=== PATIENT | female | born 1980 | race Caucasian/White ===

== ENCOUNTER → 2018-07-21 | Outpatient (CLI) | payer OTHER ==
[2018-07-21 09:48] LABS: ESTRADIOL 173.9 PG/ML
[2018-07-21 10:24] LABS: PROGESTERONE 117.2 NG/ML
== END ==
LOC: M LAB 06:28
DX: E28.9 Ovarian dysfunction, unspecified (principal)
CPT/HCPCS: 84443

== ENCOUNTER → 2018-07-25 | Outpatient (CLI) | payer OTHER ==
[2018-07-25 09:17] LABS: HCG, SERUM QUANTITATIVE 435 MIU/ML
[2018-07-25 14:49] LABS: PROGESTERONE 89.7 NG/ML
== END ==
LOC: M LAB 06:09
DX: E28.9 Ovarian dysfunction, unspecified (principal)
CPT/HCPCS: 84702

== ENCOUNTER → 2018-07-29 | Outpatient (CLI) | payer OTHER ==
[2018-07-29 11:22] LABS: PROGESTERONE 69.8 NG/ML
[2018-07-29 11:22] LABS: ESTRADIOL 241.6 PG/ML; HCG, SERUM QUANTITATIVE 2542 MIU/ML; THYROID STIMULATING HORMONE 0.855 uIU/ML (0.358-3.740)
== END ==
LOC: M LAB 06:27
DX: O09.00 Supervision of pregnancy with history of infertility, unspecified trimester (principal)
CPT/HCPCS: 84443

== ENCOUNTER → 2018-10-06 | Outpatient (CLI) | payer OTHER ==
[~2018-10-06] MED LIST: MOTR200T44 PO; PSEU30TA21 PO; TYLE325T5 PO
[2018-10-06 18:35] LABS: BASO % 0.1 % (0.0-1.0); EOS # 0.1 10^3/uL (0.0-0.50); EOS % 1.2 % (0.0-3.0); HEMOGLOBIN 11.9 g/dl (12.0-15.5); LYMPH # 1.7 10^3/uL (1.5-4.5); LYMPH % 18.9 % (24.0-44.0); MEAN CORPUSCULAR HEMOGLOBIN 29.6 pg (27.0-33.0); MEAN CORPUSCULAR HGB CONC 33.1 g/dl (32.0-36.5); MEAN CORPUSCULAR VOLUME 89.6 fl (80.0-96.0); MONO # 0.6 10^3/uL (0.0-0.8); NEUTROPHILS # 6.7 10^3/uL (1.8-7.7); NEUTROPHILS % 73.5 % (36.0-66.0); PLATELET COUNT, AUTOMATED 178 10^3/uL (150-450); RED BLOOD COUNT 4.02 10^6/uL (4.00-5.40); WHITE BLOOD COUNT 9.1 10^3/uL (4.0-10.0)
[2018-10-06 21:33] LABS: CHLAMYDIA DNA AMPLIFICATION NEGATIVE (NEGATIVE); GC DNA AMPLIFICATION NEGATIVE (NEGATIVE)
[2018-10-08 11:47] LABS: HEPATITIS C VIRUS ABY INDEX 0.1 INDEX (<0.8); HIV 1&2 SCREEN CENTAUR NEGATIVE (NEGATIVE); RUBELLA IgG QUALITATIVE EQUIVOCAL (IMMUNE)
== END ==
LOC: M SMT 15:41
PROVIDERS: ATTEND Advanced Practice Midwife
DX: Z36.89 Encounter for other specified antenatal screening (principal)

== ENCOUNTER → 2018-11-03 | Outpatient (CLI) | payer OTHER ==
--- NOTE | 2018-11-04 05:10 | REP ---
Clinical: Twin gestation. Anatomical assessment Comparison: None . Findings: Examination demonstrates diamniotic dichorionic twin gestation. Cervix measures 3.3 cm cm in length and appears closed. Complete placenta previa noted. Gestational age by LMP at 18 weeks 3 days with estimated date of delivery 04/03/2019 . TWIN A: Twin A identified in transverse (head to maternal right) presentation along the maternal lower left side. Placenta is noted posterior and grade grade 1 with evidence for complete placenta previa. motion is appreciated. Amniotic fluid volume is subjectively normal. FHR equals 144 beats per minute. BPD 4.1 cm 18 weeks 2 days HC 15.0 cm 18 weeks 1 day AC 13.9 cm 19 weeks 2 days FL 2.9 cm 18 weeks 6 days HL 2.8 cm 19 weeks 1 day HC/AC ratio 1.08 Gestational age by current measurements: 18 weeks 4 days . Estimated weight 260 grams ( 68th percentile). Anatomical assessment is complete. Normal visualized structures including cranium, cavum, cerebellum/posterior fossa, facial features, lungs, four-chamber heart/ventricular outflow tracts, diaphragm, stomach, cord insertion/three-vessel cord, kidneys/bladder, spine and extremities. Small left choroid plexus cyst noted. ------- TWIN B: Twin B identified in transverse (head to maternal left) presentation along the maternal right fundal side. Placenta is noted posterior and grade grade 1 evidence for complete previa. motion is appreciated. Amniotic fluid volume is subjectively normal. FHR equals 152 beats per minute. BPD 4.4 cm 19 weeks 1 day HC 16.1 cm 18 weeks 6-day AC 13.0 cm 18 weeks 4 days FL 3.0 cm 90 weeks 2 days HL 2.8 cm 19 weeks 1 day HC/AC ratio 1.24 Gestational age by current measurements: 18 weeks 6 days . Estimated weight 263 grams ( 64th percentile). Anatomical assessment is complete. Normal visualized structures including cranium, cord plexus, cavum, cerebellum/posterior fossa, facial features, lungs, four-chamber heart/ventricular outflow tracts, diaphragm, stomach, cord insertion/three-vessel cord, kidneys/bladder, spine and extremities. Impression: 1. Diamniotic dichorionic twin gestation demonstrating appropriate concordant growth. 2. Complete placenta previa noted. 3. Twin A includes small choroid plexus cyst. Anatomical assessment for both fetuses otherwise normal and complete. Electronically Signed by Julius Granda MD 11/04/2018 05:02 A
== END ==
LOC: M RAD 16:03
PROVIDERS: ATTEND Advanced Practice Midwife
DX: O30.042 Twin pregnancy, dichorionic/diamniotic, second trimester (principal); O32.2XX1 Maternal care for transverse and oblique lie, fetus 1; O32.2XX2 Maternal care for transverse and oblique lie, fetus 2; Z3A.18 18 weeks gestation of pregnancy; O44.02 Complete placenta previa NOS or without hemorrhage, second trimester

== ENCOUNTER → 2018-12-18 | Outpatient (CLI) | payer OTHER ==
--- NOTE | 2018-12-18 17:25 | REP ---
Clinical: Placenta previa. Twin gestation. Comparison: 11/03/2018. Findings: Examination demonstrates diamniotic dichorionic twin gestation. Cervix measures 3.9 cm cm in length and appears closed. Concordant growth is noted. Placenta identified posteriorly, grade 1 and with complete placenta previa noted. Gestational age by first ultrasound at 25 weeks 0 days with estimated date of delivery 03/31/2019 . TWIN A: Twin A identified in transverse (head to maternal right) presentation along the maternal right side. motion is appreciated. Amniotic fluid volume is normal and the deepest pocket measures 5.9 cm. FHR equals 147 beats per minute. BPD 6.2 cm 25 weeks 1 day HC 22.7 cm 24 weeks 5 days AC 20.0 cm 24 weeks 5 days FL 4.6 cm 25 weeks 2 days HL 4.1 cm 24 weeks 5 days HC/AC ratio 1.14 Estimated weight 748 grams ( 33rd percentile). Limited anatomical assessment without obvious abnormality. ------- TWIN B: Twin B identified in transverse (head to maternal left) presentation along the maternal fundal side. motion is appreciated. Amniotic fluid volume is normal and the deepest pocket measures 5.7 cm. FHR equals 150 beats per minute. BPD 6.6 cm 26 weeks 4 days HC 23.6 cm 25 weeks 5 days AC 20.8 cm 25 weeks 3 days FL 4.7 cm 25 weeks 5 days HL 4.2 cm 25 weeks 2 days HC/AC ratio 1.13 Estimated weight 826 grams ( 51st percentile). Limited anatomical assessment without obvious abnormality. Impression: 1. Diamniotic dichorionic twin gestation demonstrating appropriate concordant growth. 2. Complete placenta previa. Electronically Signed by Julius Granda MD 12/18/2018 05:17 P
== END ==
LOC: M RAD 15:45
PROVIDERS: ATTEND Advanced Practice Midwife
DX: O30.042 Twin pregnancy, dichorionic/diamniotic, second trimester (principal); O44.00 Complete placenta previa NOS or without hemorrhage, unspecified trimester; Z3A.25 25 weeks gestation of pregnancy

== ENCOUNTER → 2018-12-29 | Outpatient (CLI) | payer OTHER ==
[~2018-12-29] MED LIST changes: +DICL10TA PO; +FOLI800C PO; +ZOFR4TAB16 PO
[2018-12-29 19:30] LABS: HEMATOCRIT 33.4 % (36.0-47.0); HEMOGLOBIN 10.9 g/dl (12.0-15.5); MEAN CORPUSCULAR HEMOGLOBIN 29.6 pg (27.0-33.0); MEAN CORPUSCULAR HGB CONC 32.6 g/dl (32.0-36.5); MEAN CORPUSCULAR VOLUME 90.8 fl (80.0-96.0); PLATELET COUNT, AUTOMATED 212 10^3/uL (150-450); RED BLOOD COUNT 3.68 10^6/uL (4.00-5.40); WHITE BLOOD COUNT 8.8 10^3/uL (4.0-10.0)
== END ==
LOC: M WUC 15:26
PROVIDERS: ATTEND Advanced Practice Midwife
DX: O30.042 Twin pregnancy, dichorionic/diamniotic, second trimester (principal)

== ENCOUNTER 2018-12-31 07:37 | Outpatient (CLI) | payer OTHER ==
[~2018-12-31] VITALS: Ht 162.6 cm; Wt 72.4 kg
[~2018-12-31 07:37] MED LIST changes: -DICL10TA PO; -FOLI800C PO; -ZOFR4TAB16 PO
[2018-12-31] MEDS ORDERED: DICL10TA PO (07:54)
[2018-12-31] MEDS ORDERED: FOLI800C PO (07:54)
[2018-12-31] MEDS ORDERED: ZOFR4TAB16 PO (07:54)
[2018-12-31 08:12] VITALS: BP 112/58
--- NOTE | 2018-12-31 09:42 | IPN ---
DATE: 12/31/2018 Mariam is a 38-year-old 5, para 3-0-1-3 at 26-6/7 weeks gestation with an estimated date of confinement of 04/03/2019 based on in vitro fertilization (IVF) transfer. She presents to labor and delivery today with report of episode of bleeding at approximately 0600, moderate amount of bright red bleeding, known placenta previa, dichorionic/diamniotic (di/di) twin gestation. She denies any regular contractions and leakage of fluid. Both fetus has been active. She denies painful contractions. care was initiated at [facility] in the first trimester. course complicated by advanced maternal age. Declined Panorama testing. History of shoulder dystocia. History of hemorrhage, current(di/di) twin gestation with a complete previa, rubella equivocal with planned section. OBSTETRICAL HISTORY: June 2011: 38 weeks gestation, 7 pounds 12 ounces female vaginal delivery complicated by a hemorrhage. April 2014: 41-3/7 weeks, 8 pounds 14 ounces female, shoulder dystocia vaginal delivery. August 2016: 39 weeks gestation, 7 pounds 15 ounces male, vaginal delivery, no complications, induction of labor. March 2012: Spontaneous miscarriage. OBSTETRIC LABS: A+, antibody screen negative. Rubella equivocal, VDRL nonreactive. Urine culture no growth. Hep B surface antigen negative, HIV negative. Hep C antibody nonreactive. Gonorrhea, chlamydia negative. She declined genetic serum screening labs. Gestational diabetic screening abnormal at 186. Her 3-hour glucose tolerance test has not been scheduled yet. PAST MEDICAL HISTORY: Male factor infertility. Childhood varicella. SURGERIES: None. FAMILY HISTORY: Noncontributory. SOCIAL HISTORY: The patient is with her is at bedside. She is a nonsmoker. Denies alcohol and drug use. No history of any sexually transmitted infections and denies history of abuse, physical, sexual and emotional. ALLERGIES: No known drug allergies. CURRENT MEDICATIONS: Include -Zofran 4 mg ODT p.r.n. - Folic acid. - vitamins. OBJECTIVE: Temperature 98.2, pulse 103, blood pressure 112/58. She is alert and oriented times three. She is in no apparent distress, smiling and talkative. heart rate twin A 150 with moderate variability, appropriate for gestational age. heart rate twin B 155, moderate variability, appropriate for gestational age. There seems to be a pattern of uterine irritability and occasional contraction. Sterile speculum exam: Deepstep bleeding noted in vaginal vault. No active bleeding from cervical os. Sterile vaginal exam deferred. ASSESSMENT: Intrauterine . (di/di) twin gestation 26-6/7 weeks. heart rate is appropriate for gestational age both twins. Complete placenta previa complicated by vaginal bleeding. PLAN: Bedrest with bathroom privileges. Regular diet. Continuous monitoring at this time. Likely will observe overnight. Plan made in consultation with Dr. Cordova.
[2018-12-31 10:46] VITALS: BP 116/57
[2018-12-31 14:00] VITALS: BP 103/54
[2018-12-31 18:48] VITALS: BP 123/56
[2018-12-31 20:00] VITALS: BP 130/60
[2019-01-01 00:56] VITALS: BP 108/55
[2019-01-01 06:12] VITALS: BP 106/57
== END 2019-01-01 09:05 | disposition home or self-care (01) ==
LOC: M LDO 07:37
PROVIDERS: ATTEND Advanced Practice Midwife
DX: O26.852 Spotting complicating pregnancy, second trimester (principal); O30.042 Twin pregnancy, dichorionic/diamniotic, second trimester; O44.10 Complete placenta previa with hemorrhage, unspecified trimester; O09.522 Supervision of elderly multigravida, second trimester; Z3A.26 26 weeks gestation of pregnancy
CPT/HCPCS: G0378; G0463

== ENCOUNTER → 2019-01-02 | Outpatient (CLI) | payer OTHER ==
[~2019-01-02] MED LIST changes: +DICL10TA PO; +FOLI800C PO; +ZOFR4TAB16 PO
== END ==
LOC: M LAB 08:00
PROVIDERS: ATTEND Advanced Practice Midwife
DX: R73.02 Impaired glucose tolerance (oral) (principal)

== ENCOUNTER 2019-01-17 21:31 | Inpatient (IN) | payer OTHER ==
[~2019-01-17] VITALS: Ht 162.6 cm; Wt 73.0 kg
[2019-01-17] VITALS (14 sets, daily range): BP systolic 63–121; BP diastolic 34–65
[2019-01-17] MEDS ORDERED: MAGNESIUM *L&D* 4 GM/100 ML BAG (40MG/ML) (J3475) As Ordered ONE (21:49)
[2019-01-17] MEDS ORDERED: MAGNESIUM SULFATE 4% INJ 20GM/500ML (40MG/ML) (J3475) As Ordered ONE (21:49)
[2019-01-17 21:52] LABS: HEMATOCRIT 32.5 % (36.0-47.0); HEMOGLOBIN 10.7 g/dl (12.0-15.5); MEAN CORPUSCULAR HEMOGLOBIN 29.1 pg (27.0-33.0); MEAN CORPUSCULAR HGB CONC 32.9 g/dl (32.0-36.5); MEAN CORPUSCULAR VOLUME 88.3 fl (80.0-96.0); PLATELET COUNT, AUTOMATED 213 10^3/uL (150-450); RED BLOOD COUNT 3.68 10^6/uL (4.00-5.40); WHITE BLOOD COUNT 9.5 10^3/uL (4.0-10.0)
[2019-01-17] MEDS: MAG Sulf (OBGYN) 20GM/500ML 20,000 MG in APPROPRIATE DILUENT 1 EA IV SCH (22:08)
[2019-01-17] MEDS ORDERED: BETAMETHASONE SOLUSPAN 6MG/ML INJ 5ML (J0702) IM SCH (22:15)
[2019-01-17] MEDS ORDERED: MAG Sulf (L&D) 4 GM/100 ML 4 GM in APPROPRIATE DILUENT 1 EA IV ONE (22:15)
[2019-01-17] MEDS ORDERED: CALCIUM GLUCONATE 1,000 MG in D5W MINI-BAG PLUS 100 ML IV PRN (22:15)
[2019-01-17] MEDS: LR 1,000 ML IV SCH (22:20)
[2019-01-17] MEDS: ONDANSETRON 4MG/2ML VIAL (J2405) IV PRN (22:22)
[2019-01-18] VITALS (17 sets, daily range): BP systolic 89–126; BP diastolic 46–59
--- NOTE | 2019-01-18 00:39 | REPVR ---
EXAM: US After First Trimester, Transabdominal. Additional Gestation EXAM DATE/TIME: 01/17/2019 11:19 PM CLINICAL HISTORY: 38 years old, female; Signs and symptoms; Lmp or gestational age (in weeks): 29w 1d; Other: Vaginal bleeding, twin gestation; ; Patient HX: Placenta previa, twin gestation; Additional info: Growth TECHNIQUE: Imaging protocol: Real-time transabdominal obstetrical ultrasound of the maternal pelvis and a second or third trimester with image documentation. Additional Gestation was evaluated. COMPARISON: US OBS FOLL UP OR REPEAT EACH GES 12/18/2018 3:57 PM FINDINGS: Last menstrual period: 06/27/2018 Gestation: There is a diamniotic, dichorionic twin intrauterine gestation. Placenta: The placenta is anterior and grade 1. There is complete placenta previa. There is no evidence for placental abruption. Cervix: The cervix is closed and measures 4.2 cm. Maternal uterus: Unremarkable. Maternal adnexa: The ovaries were not identified. TWIN A: Heart rate: 155 beats per minute Presentation: The fetus is in transverse lie with the head to the maternal right. Amniotic fluid: Within normal limits. The deepest pocket of amniotic fluid measures 4.6 cm the Gender: Female BPD: 7.26 cm, which corresponds with gestational age of 29 weeks 1 day (27% for GA) HC: 25.82 cm, which corresponds to a gestational age of 28 weeks 0 days (3% for GA) AC: 24.32 cm, which corresponds to a gestational age of 28 weeks 4 days (27% for GA) FL: 5.45 cm, which corresponds to a gestational age of 28 weeks 6 days (25% for GA) HL: 4.95 cm, which corresponds to a gestational age of 29 weeks 0 days (42% for GA) CI: 84.6 (74 - 83) HC/AC: 1.06 (0.99 - 1.21) FL/BPD: 75.1 (70.8 - 86.8) FL/HC: 21.1 (18.4 - 22) FL/AC: 22.4 (20 - 24) EFW: 1260 g +/- 186 g (2 lb 12 oz +/- 7 oz) (21% for GA) Clinical age: 29 weeks 1 day Ultrasound age: 28 weeks 5 days Estimated due date based on LMP: 04/03/2019 Estimated due date based on ultrasound: 04/06/2019 Biophysical profile: 05/28 Breathin Movement: 2 Tone: 2 Amniotic fluid volume: 2 Doppler: Umbilical - Insertion: S/D: 2.63 RI: 0.62 The nuchal cord was not identified. Scan quality was limited due to crowding and the advanced gestational age. TWIN B: Heart rate: 158 beats per minute Presentation: Fetus B is in transverse lie with the head to the maternal right positioned superior to fetus A at the fundus. Amniotic fluid: Within normal limits. The deepest pocket of the amniotic fluid measures 3.3 cm. Gender: Female BPD: 7.65 cm, which corresponds with gestational age of 30 weeks 5 days (84% for GA) HC: 27.95 cm, which corresponds to a gestational age of 30 weeks 4 days (61% for GA) AC: 26.30 cm, which corresponds to a gestational age of 30 weeks 3 days (81% for GA) FL: 5.89 cm, which corresponds to a gestational age of 30 weeks 5 days (79% for GA) HL: 5.08 cm, which corresponds to a gestational age of 29 weeks 5 days (56% for GA) CI: 82.4 (74 - 83) HC/AC: 1.06 (0.99 - 1.21) FL/BPD: 77 (70.8 - 86.8) FL/HC: 21.1 (18.4 - 22) FL/AC: 22.4 (20 - 24) EFW: 1597 g +/- 236 g (3 lb 8 oz +/- 8 oz) (86% for GA) Clinical age: 29 weeks 1 day Ultrasound age: 30 weeks 3 days Estimated due date based on LMP: 04/03/2019 Estimated due date based on ultrasound: 03/25/2019 Biophysical profile: 05/28 Breathin Movement: 2 Tone: 2 Amniotic fluid volume: 2 Doppler: Umbilical - Insertion: S/D: 3.97 RI: 0.75 The nuchal cord was not identified. Scan quality was limited due to crowding and the advanced gestational age. IMPRESSION: 1. Diamniotic, dichorionic gestation demonstrating appropriate concordant growth. 2. Complete placenta previa. Electronically signed by: Brendan Mccoy On 01/18/2019 00:38:17 AM
[2019-01-18] MEDS: LR 1,000 ML IV SCH (03:17)
[2019-01-18 06:02] LABS: HEMATOCRIT 29.2 % (36.0-47.0); HEMOGLOBIN 9.5 g/dl (12.0-15.5); MEAN CORPUSCULAR HEMOGLOBIN 28.5 pg (27.0-33.0); MEAN CORPUSCULAR HGB CONC 32.5 g/dl (32.0-36.5); MEAN CORPUSCULAR VOLUME 87.7 fl (80.0-96.0); PLATELET COUNT, AUTOMATED 186 10^3/uL (150-450); RED BLOOD COUNT 3.33 10^6/uL (4.00-5.40); WHITE BLOOD COUNT 11.4 10^3/uL (4.0-10.0)
[2019-01-18] MEDS: ONDANSETRON 4MG/2ML VIAL (J2405) IV PRN ×2 (07:15→10:33)
[2019-01-18] MEDS: MAG Sulf (OBGYN) 20GM/500ML 20,000 MG in APPROPRIATE DILUENT 1 EA IV SCH (07:51)
--- NOTE | 2019-01-18 11:32 | DSES ---
DATE OF ADMISSION: 01/17/2019 DATE OF TRANSFER: 01/18/2019 TRANSFER LOCATION: [facility]. HISTORY AND HOSPITAL COURSE: Mrs. Menendez is a 38-year-old 5, para 3 who presented at 29 weeks 1 day estimated gestational age, this was by in vitro fertilization (IVF) transfer with a known dichorionic/diamniotic (Ezio) twin gestation, complete placenta previa with acute vaginal bleeding. She was admitted for observation after having significant active bleeding. She was started on magnesium sulfate for tocolysis secondary to contractions. Her contractions spaced out on magnesium sulfate. She received one dose of steroids for lung maturity and she had no further vaginal bleeding since arrival to the hospital. She currently and has had a category 2 rate tracing for both twins. PHYSICAL EXAMINATION: Her vital signs are stable. She is afebrile. GENERAL APPEARANCE: Well appearing, no acute distress. She has a category 2 heart rate tracing for both twins with occasional contractions on tocometer. LABS: Upon admission, her hemoglobin and hematocrit 10.7 and 32.5, platelets were 213. This morning, her hemoglobin and hematocrit is 9.5 and 29.2, and her platelets are 186. RADIOLOGY: She has had bedside ultrasound demonstrating Ezio twin gestation, complete placenta previa. She had a biophysical profile the 05/28 for both twins. Estimated weight for twin B is 1597 grams, for twin A 1260 grams. TRANSFER CONDITION: Stable. ACCEPTING PHYSICIAN: Dr. Chun LOCATION: [facility]. MEDICATIONS ON TRANSFER: - magnesium sulfate 2 grams an hour. She will be accompanied by an RN and will have continuous monitoring.
--- NOTE | 2019-01-18 14:46 | HPE ---
DATE OF ADMISSION: 01/17/2019 REASON FOR ADMISSION: Vaginal bleeding. HISTORY OF PRESENT ILLNESS: Mrs. Menendez is a 38-year-old 5, para 3 who presents at 29 weeks 1 day estimated gestational age by in vitro fertilization (IVF) transfer with known diamniotic-dichorionic (DI-DI) twin gestation with complete placenta previa, who presents with vaginal bleeding. She reports overnight having an episode of brisk vaginal bleeding requiring three patchings just within an hour. She reports active movement, denies any significant contractions. Her course is remarkable for: 1. Diamniotic-dichorionic twin gestation. 2. Placenta previa. 3. Advanced maternal age. PAST MEDICAL HISTORY: None. PAST SURGICAL HISTORY: None. PAST OBSTETRICAL HISTORY: She is 3, she is para 3. She has had three vaginal deliveries. Her second was complicated by shoulder dystocia. She is proven to 8 pounds 14 ounces. MEDICATIONS: Include vitamins. She has a sensitivity to codeine. SOCIAL HISTORY: She denies any alcohol, tobacco, or drug use during her . PHYSICAL EXAM: Her vital signs are stable. She is afebrile. She has category 2 rate tracing times two. General appearance: Well appearing, no acute distress. Her lungs are clear to auscultation bilaterally. Cardiovascular: Heart regular rate and rhythm. Her abdomen is gravid, nontender. Pelvic exam was deferred. The perineum was inspected with large amount of clots, which was cleaned up no active bleeding currently. LABS: her blood type is A positive. Antibody screen is negative. Rubella was equivocal. Hepatitis surface antigen is negative. RPR is nonreactive. HIV is negative. Hepatitis C is nonreactive. Chlamydia and gonorrhea screens negative. She had an elevated 1-hour Glucola, normal 3-hour glucose tolerance test. Her current CBC, her hematocrit is 32.5, hemoglobin 10.7, platelets 213. ASSESSMENT: 1. Mrs. Menendez is a 38-year-old 5, para 3, at 29 weeks 1 day estimated gestational age with known diamniotic-dichorionic twin gestation and complete placenta previa with acute vaginal bleeding, currently stable. 2. Reassure status times two. PLAN: 1. Admit to labor and delivery CBC, type and cross. 2. Biophysical profile (BPP) and growth ultrasound. 3. Steroids to lung maturity. 4. Magnesium sulfate tocolysis secondary to contractions on tocometer. 5. Everything has been discussed with the couple. Discussed plan of care. Goal was to monitor. If remains stable, consider transfer to [place]. Have also discussed potential need for emergency surgery, blood products, anesthesia. She has been verbally consented and agrees with plan.
== END 2019-01-18 10:40 | disposition other institution (70) | DRG 833 ==
LOC: M LDO 21:31 → M LDI 22:00 → UNDODISIN 01-18 10:40
PROVIDERS: ADMIT Obstetrics & Gynecology; ATTEND Obstetrics & Gynecology
DX: O44.13 Complete placenta previa with hemorrhage, third trimester (principal); Z3A.29 29 weeks gestation of pregnancy; O09.523 Supervision of elderly multigravida, third trimester; O30.043 Twin pregnancy, dichorionic/diamniotic, third trimester

== ENCOUNTER 2019-02-06 22:27 | Inpatient (IN) | payer OTHER ==
[~2019-02-06] VITALS: Ht 162.6 cm; Wt 75.5 kg
--- NOTE | 2019-02-06 22:54 | IPNPDOC ---
Text Note Date of Service The patient was seen on 02/06/19. NOTE Outpatient 38yo JOSE G 04/03/19. Di/di twin gestation presents @ 32 wks with abrupt onset heavy bleeding. Known placenta previa. Denies contractions or LOF. Fetus active x 2 NAD, appears concerned VSS Cat I tracing x 2 No UC on monitor Spec exam, large amount bright red bleeding with clots, unable to clear vault sufficiently to visualize cervix Dr Howard notified to attend. Maggie Hadley CNM Feb 06, 2019 22:54
[2019-02-06] MEDS: LR 1,000 ML IV SCH (23:00)
[2019-02-06] MEDS ORDERED: LACTATED RINGER'S 1000 ML IV ONE (23:00)
[2019-02-06] MEDS ORDERED: BICITRA 30ML SOLN UDC As Ordered ONE (23:08)
[2019-02-06 23:11] LABS: HEMOGLOBIN 9.3 g/dl (12.0-15.5); MEAN CORPUSCULAR HEMOGLOBIN 28.4 pg (27.0-33.0); MEAN CORPUSCULAR HGB CONC 32.1 g/dl (32.0-36.5); MEAN CORPUSCULAR VOLUME 88.4 fl (80.0-96.0); PLATELET COUNT, AUTOMATED 175 10^3/uL (150-450); RED BLOOD COUNT 3.28 10^6/uL (4.00-5.40); WHITE BLOOD COUNT 9.9 10^3/uL (4.0-10.0)
[2019-02-06] MEDS ORDERED: BICITRA 30ML SOLN UDC PO ONE (23:15)
[2019-02-06] MEDS: BETAMETHASONE SOLUSPAN 6MG/ML INJ 5ML (J0702) IM SCH (23:21)
[2019-02-06 23:31] LABS: PROTHROMBIN TIME 13.3 SECONDS (12.1-14.4)
[2019-02-06 23:32] LABS: PARTIAL THROMBOPLASTIN TIME 24.9 SECONDS (25.4-37.6)
[2019-02-07] VITALS (12 sets, daily range): BP systolic 106–148; BP diastolic 56–68
--- NOTE | 2019-02-07 00:30 | NUR ---
L&D H&P 38yo . IVF di/di twins at 32+1 weeks. Known placenta previa. Received first course of corticosteroids on 01/17 and 01/18 after experiencing bleeding. She was discharged from [place] after remaining stable. Since then, she has not had any bleeding until this evening. First noticed spontaneous, non-provoked bleeding around 2230 this evening. She is not having any abd/pelvic pain or contractions. No LOF. She's feeling both twins move frequently. No f/c/MOTT/sob/cp. Has had chronic NVP throughout this . 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 Twin B: BL 140, mod nain, +accels, -decels, Cat I. [place]: no ctxs A/P: 38yo at 32+1 weeks. Di/Di twins with placenta previa and currently bleeding. Significant, but non-acute bleeding. Mildly anemic. Reassuring status of both twins. -Admit to L&D -cEFM/[place] -Rescue dose of corticosteroids -Serial CBC's ; transfuse if significantly anemic or downtrending h/h with ongoing bleeding. Obie Howard, DO
[2019-02-07] MEDS: CALCIUM CARBONATE 500 MG CHEW U/D PO PRN ×5 (01:41→22:58)
[2019-02-07] MEDS ORDERED: PRENTAB9 PO (05:26)
[2019-02-07] MEDS: ONDANSETRON 4 MG TAB (S0181) PO PRN ×2 (06:53→14:56)
[2019-02-07 07:22] LABS: HEMATOCRIT 27.1 % (36.0-47.0); HEMOGLOBIN 8.6 g/dl (12.0-15.5); MEAN CORPUSCULAR HEMOGLOBIN 28.1 pg (27.0-33.0); MEAN CORPUSCULAR HGB CONC 31.7 g/dl (32.0-36.5); MEAN CORPUSCULAR VOLUME 88.6 fl (80.0-96.0); PLATELET COUNT, AUTOMATED 174 10^3/uL (150-450); RED BLOOD COUNT 3.06 10^6/uL (4.00-5.40); WHITE BLOOD COUNT 11.4 10^3/uL (4.0-10.0)
[2019-02-07] MEDS: FERROUS SULFATE 325MG TAB PO SCH ×2 (08:10→21:12)
[2019-02-07] MEDS: LR 1,000 ML IV SCH ×2 (08:24→20:28)
[2019-02-07] MEDS ORDERED: DOCUSATE SODIUM 100 MG CAP PO SCH (09:00)
[2019-02-07] MEDS: OMEPRAZOLE 20 MG CAP PO SCH (09:10)
[2019-02-07 12:05] LABS: HEMATOCRIT 25.7 % (36.0-47.0); HEMOGLOBIN 8.2 g/dl (12.0-15.5); MEAN CORPUSCULAR VOLUME 89.5 fl (80.0-96.0); RED BLOOD COUNT 2.87 10^6/uL (4.00-5.40); WHITE BLOOD COUNT 12.4 10^3/uL (4.0-10.0)
[2019-02-07 12:06] LABS: MEAN CORPUSCULAR HEMOGLOBIN 28.6 pg (27.0-33.0); MEAN CORPUSCULAR HGB CONC 31.9 g/dl (32.0-36.5); PLATELET COUNT, AUTOMATED 163 10^3/uL (150-450)
[2019-02-07] MEDS: PRENATAL VITAMINS CHEWABLE TABLET PO SCH (13:25)
[2019-02-07] MEDS ORDERED: ONDANSETRON 4MG/2ML VIAL (J2405) IV PRN (20:15)
[2019-02-07] MEDS: DOCUSATE SODIUM 100 MG CAP PO PRN (21:12)
[2019-02-07 22:36] LABS: HEMATOCRIT 30.9 % (36.0-47.0); HEMOGLOBIN 10.1 g/dl (12.0-15.5); MEAN CORPUSCULAR HEMOGLOBIN 28.9 pg (27.0-33.0); MEAN CORPUSCULAR HGB CONC 32.7 g/dl (32.0-36.5); MEAN CORPUSCULAR VOLUME 88.3 fl (80.0-96.0); PLATELET COUNT, AUTOMATED 165 10^3/uL (150-450); WHITE BLOOD COUNT 14.3 10^3/uL (4.0-10.0)
[2019-02-07] MEDS: DICLEGIS PO SCH (22:57)
[2019-02-07] MEDS: BETAMETHASONE SOLUSPAN 6MG/ML INJ 5ML (J0702) IM SCH (23:00)
[2019-02-08] VITALS (10 sets, daily range): BP systolic 84–125; BP diastolic 47–69
[2019-02-08] MEDS: LR 1,000 ML IV SCH ×3 (07:00→16:17)
[2019-02-08] MEDS: ONDANSETRON 4 MG TAB (S0181) PO PRN ×3 (07:56→23:32)
[2019-02-08] MEDS: DOCUSATE SODIUM 100 MG CAP PO PRN ×2 (08:34→21:39)
[2019-02-08] MEDS: FERROUS SULFATE 325MG TAB PO SCH ×2 (08:34→21:39)
[2019-02-08] MEDS: OMEPRAZOLE 20 MG CAP PO SCH (08:34)
[2019-02-08 09:03] LABS: HEMATOCRIT 28.6 % (36.0-47.0); HEMOGLOBIN 9.4 g/dl (12.0-15.5); MEAN CORPUSCULAR HEMOGLOBIN 29.2 pg (27.0-33.0); MEAN CORPUSCULAR HGB CONC 32.9 g/dl (32.0-36.5); MEAN CORPUSCULAR VOLUME 88.8 fl (80.0-96.0); PLATELET COUNT, AUTOMATED 152 10^3/uL (150-450); RED BLOOD COUNT 3.22 10^6/uL (4.00-5.40); WHITE BLOOD COUNT 12.4 10^3/uL (4.0-10.0)
[2019-02-08] MEDS: PRENATAL VITAMINS CHEWABLE TABLET PO SCH (11:16)
--- NOTE | 2019-02-08 17:54 | NUR ---
Progress Note Pt has experienced intermittent light spotting / expression of small blood clots throughout the last 24 hours. Bleeding has not returned to the original level it was on 02/06. Intermittent mild uterine cramping, but denies painful frequent contractions. +FM x 2. No LOF. Received second dose of rescue course of corticosteroids last night. 2 units of PRBC transfused yesterday with resultant appropriate increase in h/h (see [employer]) Normotensive, normal HR, afebrile Abd: soft,nt,nd. Uterine fundus nontender. EFM: Cat I x 2. [place]: intermittent runs of uterine activity/ctxs (nonpainful) A/P: 32+2 weeks. DI/DI twins. Placenta previa; non-acute bleeding. Anemia. -Repeat CBC in AM or sooner if heavy VB returns -prolonged / continuous EFM and [place], with intermittent rests as long as patient is stable and FHR reassuring x 2. -Resume regular diet since she's remained stable over the past 24 hours -continue inpatient management. -Timing of non-emergent delivery plan TBD; I'll discuss with [facility] team tomorrow. Obie Howadr,
[2019-02-08] MEDS: DICLEGIS PO SCH (21:39)
[2019-02-09] VITALS (27 sets, daily range): BP systolic 92–130; BP diastolic 52–67
[2019-02-09] MEDS: CALCIUM CARBONATE 500 MG CHEW U/D PO PRN ×2 (02:41→23:36)
--- NOTE | 2019-02-09 05:36 | NUR ---
Progress Note Pt has experienced no significant bleeding throughout the last 24 hours. Only noticed a strand of blood clot when she wiped in the restroom. Denies any significant cramping or painful frequent contractions. +FM x 2. No LOF. Normotensive, normal HR, afebrile Abd: soft,nt,nd. Uterine fundus nontender. EFM: Cat I x 2. [place]: intermittent runs of uterine activity/ctxs (nonpainful) A/P: 32+3 weeks. DI/DI twins. Placenta previa; non-acute bleeding. Anemia. -Repeat CBC this AM -prolonged / continuous EFM and [place], with intermittent rests as long as patient is stable and FHR reassuring x 2. -continue inpatient management. -Timing of non-emergent delivery plan TBD; currently scheduled for PLTCS at 36 weeks. Obie Howard DO
[2019-02-09 07:07] LABS: HEMATOCRIT 24.6 % (36.0-47.0); HEMOGLOBIN 7.8 g/dl (12.0-15.5); MEAN CORPUSCULAR HEMOGLOBIN 28.7 pg (27.0-33.0); MEAN CORPUSCULAR HGB CONC 31.7 g/dl (32.0-36.5); MEAN CORPUSCULAR VOLUME 90.4 fl (80.0-96.0); PLATELET COUNT, AUTOMATED 125 10^3/uL (150-450); RED BLOOD COUNT 2.72 10^6/uL (4.00-5.40); WHITE BLOOD COUNT 8.5 10^3/uL (4.0-10.0)
[2019-02-09] MEDS: ONDANSETRON 4 MG TAB (S0181) PO PRN ×3 (07:50→23:20)
--- NOTE | 2019-02-09 08:00 | NUR ---
Progress Note Repeat CBC this AM 8.5>7.8/24.6<125K Coag panel ordered Transfuse 3u prbcs Pt made aware of this plan and agrees to proceed with repeat transfusion. Obie Howard DO
[2019-02-09 08:25] LABS: INR 1.01; PROTHROMBIN TIME 13.4 SECONDS (12.1-14.4)
[2019-02-09 08:26] LABS: PARTIAL THROMBOPLASTIN TIME 23.6 SECONDS (25.4-37.6)
[2019-02-09] MEDS: OMEPRAZOLE 20 MG CAP PO SCH (10:24)
[2019-02-09] MEDS: FERROUS SULFATE 325MG TAB PO SCH ×2 (10:24→21:04)
[2019-02-09] MEDS: DOCUSATE SODIUM 100 MG CAP PO PRN ×2 (10:25→21:04)
[2019-02-09] MEDS: LR 1,000 ML IV SCH ×4 (10:25→23:00)
[2019-02-09] MEDS: PRENATAL VITAMINS CHEWABLE TABLET PO SCH (11:50)
--- NOTE | 2019-02-09 12:11 | REP ---
Limited obstetric sonography: Multiple gestation. History: Evaluate previa. History of complete previa. Comparison study February 05 2019. Findings: The known diamniotic dichorionic twin gestations again seen. Placenta for baby A is posterior and the placenta for baby B is left lateral. Both placentas are grade II. There is evidence of complete placenta previa. No evidence of abruption. Closed cervical length measured transabdominally is 4.5 cm. heart rate for fetus A is 152 and heart rate for fetus B is recorded at 163 beats per minute. The twin A is cephalic along maternal right. Amniotic fluid is subjectively normal. The deepest pocket of amniotic fluid measures 5.2 cm. Twin B is variable lie along maternal left. Amniotic fluid is subjectively normal. Deepest pocket of amniotic fluid measures 8.8 cm. Impression: Complete placenta previa persists. Electronically Signed by Ayad Alva MD 02/09/2019 12:03 P
[2019-02-09 17:40] LABS: HEMATOCRIT 32.7 % (36.0-47.0); HEMOGLOBIN 10.7 g/dl (12.0-15.5); MEAN CORPUSCULAR HEMOGLOBIN 29.4 pg (27.0-33.0); MEAN CORPUSCULAR HGB CONC 32.7 g/dl (32.0-36.5); MEAN CORPUSCULAR VOLUME 89.8 fl (80.0-96.0); PLATELET COUNT, AUTOMATED 126 10^3/uL (150-450); RED BLOOD COUNT 3.64 10^6/uL (4.00-5.40); WHITE BLOOD COUNT 10.7 10^3/uL (4.0-10.0)
[2019-02-09] MEDS: DICLEGIS PO SCH (21:04)
--- NOTE | 2019-02-09 21:42 | IPNPDOC ---
Text Note Date of Service The patient was seen on 02/09/19. NOTE Subjective: Patient reports she is doing well. She denies any vaginal bleeding. She denies feeling any contractions or leaking of fluid. She reports active movement. Objective: VS: See below. FHR of twin A: 135, moderate variability, positive accelerations, no decelerations. Twin B FHR: 145, moderate variability, positive accelerations, no decelerations. Contractions every 2-4 minutes. Assessment: di/di twin gestation at 32.3 weeks gestation, complete previa Plan: Patient received 3 units of PRBC today. Dr. Cordova collaborated on plan of care with patient. Repeat CBC ordered for 02/10/19 at 0600. Patient is to notify us of any vaginal bleeding. We will continue to monitor patient. Patient had been OOB and showered today. Neonatology consult ordered and Dr. Marcelo was in to discuss all questions regarding potential NICU admission of twins. VS,[place], I+O VS, [place], I+O Laboratory Tests 02/09/19 06:00 Red Blood Count 2.72 L, Mean Corpuscular Volume 90.4, Mean Corpuscular Hemoglobin 28.7, Mean Corpuscular Hemoglobin Concent 31.7 L, Red Cell Distribution Width 16.2 H 02/09/19 17:06 Red Blood Count 3.64 L, Mean Corpuscular Volume 89.8, Mean Corpuscular Hemoglobin 29.4, Mean Corpuscular Hemoglobin Concent 32.7, Red Cell Distribution Width 15.7 H Vital Signs Date Time Temp Pulse Resp B/P (MAP) Pulse Ox O2 Delivery O2 Flow Rate FiO2 02/09/19 18:48 97.9 98 18 125/61 (82) I&O- Last 24 Hours up to 6 AM 02/09/19 05:59 Intake Total 1665 ml Output Total 4600 ml Balance -2935 ml REJI SANTIAGO CNM Feb 09, 2019 21:42
[2019-02-10] VITALS (7 sets, daily range): BP systolic 110–138; BP diastolic 55–71
[2019-02-10 06:06] LABS: HEMATOCRIT 33.1 % (36.0-47.0); HEMOGLOBIN 10.8 g/dl (12.0-15.5); MEAN CORPUSCULAR HEMOGLOBIN 29.3 pg (27.0-33.0); MEAN CORPUSCULAR HGB CONC 32.6 g/dl (32.0-36.5); MEAN CORPUSCULAR VOLUME 89.9 fl (80.0-96.0); PLATELET COUNT, AUTOMATED 124 10^3/uL (150-450); RED BLOOD COUNT 3.68 10^6/uL (4.00-5.40); WHITE BLOOD COUNT 9.2 10^3/uL (4.0-10.0)
[2019-02-10] MEDS: LR 1,000 ML IV SCH ×3 (07:00→23:00)
--- NOTE | 2019-02-10 07:38 | NUR ---
Progress note S: Does not feel any contractions O: KC=720/58 P=80 AF NAD Abd: NT, gravid FHT: Cat. I x 2 toco: irregular, mild ext: NT Hb=10.7 g/dl A/P 38 yo at 32 4/7 weeks with twins, placenta previa Hemoglobin stable after 5 units of PRBC's Continue bedrest Could consider discharge to home at some point if she remains stable, without bleeding Raman Cordova MD
[2019-02-10] MEDS: ONDANSETRON 4 MG TAB (S0181) PO PRN ×2 (07:41→20:09)
[2019-02-10] MEDS ORDERED: SLF 3 ML SYR IV PRN (08:00)
[2019-02-10] MEDS: OMEPRAZOLE 20 MG CAP PO SCH (09:35)
[2019-02-10] MEDS: FERROUS SULFATE 325MG TAB PO SCH ×2 (09:35→20:41)
[2019-02-10] MEDS: DOCUSATE SODIUM 100 MG CAP PO PRN ×2 (09:35→20:41)
[2019-02-10] MEDS: PRENATAL VITAMINS CHEWABLE TABLET PO SCH (12:34)
[2019-02-10] MEDS: SLF 3 ML SYR IV SCH ×2 (15:06→20:43)
[2019-02-10] MEDS: DICLEGIS PO SCH (20:42)
[2019-02-11] VITALS (23 sets, daily range): BP systolic 105–177; BP diastolic 55–81
[2019-02-11 06:11] LABS: HEMATOCRIT 34.1 % (36.0-47.0); HEMOGLOBIN 11.1 g/dl (12.0-15.5); MEAN CORPUSCULAR HEMOGLOBIN 29.4 pg (27.0-33.0); MEAN CORPUSCULAR HGB CONC 32.6 g/dl (32.0-36.5); MEAN CORPUSCULAR VOLUME 90.2 fl (80.0-96.0); PLATELET COUNT, AUTOMATED 133 10^3/uL (150-450); RED BLOOD COUNT 3.78 10^6/uL (4.00-5.40); WHITE BLOOD COUNT 8.7 10^3/uL (4.0-10.0)
[2019-02-11] MEDS: SLF 3 ML SYR IV SCH ×2 (06:17→14:02)
[2019-02-11] MEDS: LR 1,000 ML IV SCH ×3 (07:00→17:48)
[2019-02-11] MEDS: OMEPRAZOLE 20 MG CAP PO SCH (08:34)
[2019-02-11] MEDS: ONDANSETRON 4 MG TAB (S0181) PO PRN (08:34)
[2019-02-11] MEDS: FERROUS SULFATE 325MG TAB PO SCH (08:34)
--- NOTE | 2019-02-11 09:11 | NUR ---
PROGRESS NOTE S: Denies any contractions. Denies bleeding and LOF. Reports positive movement x 2. O: T 98.5F, P91, R18, b/P115/60 CBC today: Hgb-11.1, Hct-34.1, Plt-133 Off EFM at this time. A: Di/Di twin gestation at 32 5/7 weeks. Complete previa with bleeding episode requiring transfusion of RBCs. Currently stable P: IV access requiring restart. PT, PTT, Fibrinogen ordered. KB ordered. Continue to monitor as inpatient. Plan for c/s at 34 weeks or PRN if change in status with per group consensus of [facility] OB team.
[2019-02-11 09:53] LABS: INR 1.01; PARTIAL THROMBOPLASTIN TIME 25.9 SECONDS (25.4-37.6); PROTHROMBIN TIME 13.4 SECONDS (12.1-14.4)
[2019-02-11] MEDS: PRENATAL VITAMINS CHEWABLE TABLET PO SCH (12:48)
[2019-02-11] MEDS ORDERED: LACTATED RINGER'S 1000 ML IV STA (15:10)
[2019-02-11] MEDS ORDERED: BICITRA 30ML SOLN UDC PO ONE (15:15)
[2019-02-11 15:48] LABS: HEMATOCRIT 36.4 % (36.0-47.0); MEAN CORPUSCULAR HEMOGLOBIN 29.5 pg (27.0-33.0); MEAN CORPUSCULAR VOLUME 89.4 fl (80.0-96.0); PLATELET COUNT, AUTOMATED 149 10^3/uL (150-450); RED BLOOD COUNT 4.07 10^6/uL (4.00-5.40); WHITE BLOOD COUNT 9.4 10^3/uL (4.0-10.0)
[2019-02-11] MEDS ORDERED: AZITHROMYCIN INJ 500 MG, VIAL MATE ADAPTER 1 EACH in D5W 250 ML IV ONE (16:00)
--- NOTE | 2019-02-11 17:53 | NUR ---
Progress Note Discussed with Mariam and Benitez Menendez the plan of care. Pt has expressed desire to forego continued expectant management in order to reduce the risk of an emergent delivery. In the context of being s/p transfusion of 5u prbc, 3 units of which were transfused in the setting of a decrease in h/h in the absence of any significant bleeding over the course of this h/h drop, +recent KB (today), a history of multiple bleeding episodes throughout her course, corticosteroid (Betamethasone) rescue course being completed during this admission, and her expressed desire, my opinion is that it is acceptable to proceed with delivery today. We discussed the risks, benefits, alternatives, and indications of a primary section. Informed consent has been obtained. Given her NPO status, the plan is to proceed with PLTCS on/around 1900 this evening. This was decided after discussing this case with our Anesthesia department. Preparations for the OR have been initiated. Obie Howard DO
[2019-02-11] MEDS ORDERED: ONDANSETRON 4MG/2ML VIAL (J2405) As Ordered ONE ×2 (19:12→21:17)
[2019-02-11] MEDS ORDERED: ONDANSETRON 4MG/2ML VIAL (J2405) IV ONE (19:15)
[2019-02-11] MEDS ORDERED: OXYTOCIN INJ 10 UNITS/ML VIAL (J2590) As Ordered ONE (19:23)
[2019-02-11] MEDS ORDERED: MORPHINE PRES-FREE INJ 10 MG/10 ML VIAL (J2274) As Ordered ONE (19:23)
[2019-02-11] MEDS ORDERED: PHENYLEPHRINE INJ 10MG/ML VIAL (J2370) As Ordered ONE ×2 (19:23→20:12)
[2019-02-11] MEDS ORDERED: ePHEDrine SULFATE 25 MG/5 ML(5MG/ML) SYRINGE As Ordered ONE ×2 (19:23→20:12)
[2019-02-11] MEDS ORDERED: BUPIVACAINE/DEXTROSE 0.75% 2 ML AMP As Ordered ONE ×2 (19:23→19:33)
[2019-02-11] MEDS ORDERED: LIDOCAINE 2% INJ 100 MG/5 ML SDV (FOR ANES.) As Ordered ONE (20:15)
[2019-02-11] MEDS ORDERED: ACETAMINOPHEN 1000MG 100ML IV BTL (OFIRMEV) (J0131 PER 10MG) As Ordered ONE (20:19)
[2019-02-11] MEDS ORDERED: fentaNYL 100 MCG/2 ML INJECTION (J3010) As Ordered ONE (20:52)
[2019-02-11] MEDS ORDERED: dexameTHASONE 4 MG/ML 1ML VIAL (J1100) As Ordered ONE (21:16)
[2019-02-11] MEDS ORDERED: PROMETHAZINE INJ 25 MG/ML VIAL (J2550) As Ordered ONE (21:31)
[2019-02-11] MEDS ORDERED: OXYTOCIN 30 UNITS IN 0.9% NaCl 500ML IV BAG (J2590) As Ordered ONE (21:35)
[2019-02-11] MEDS ORDERED: OXYTOCIN DRIP 30 UNITS in APPROPRIATE DILUENT 1 EA IV SCH (21:35)
[2019-02-11] MEDS ORDERED: MEASLES,MUMPS,RUBELLA VACCINE INJ (MMR-II) (90707) SC SCH (21:45)
[2019-02-11] MEDS ORDERED: ONDANSETRON 4MG/2ML VIAL (J2405) IV PRN ×2 (21:45)
[2019-02-11] MEDS ORDERED: PROMETHAZINE 25 MG TAB PO PRN (21:45)
[2019-02-11] MEDS ORDERED: RHOGAM 300 MCG (1500 IU) INJ (J2790) IM SCH (21:45)
[2019-02-11] MEDS ORDERED: NALBUPHINE HCL 10 MG/ML AMP (J2300) IV PRN (21:45)
[2019-02-11] MEDS ORDERED: fentaNYL 100 MCG/2 ML INJECTION (J3010) IV PRN (21:45)
[2019-02-11] MEDS ORDERED: PROMETHAZINE INJ 25 MG/ML VIAL (J2550) IV PRN (21:45)
[2019-02-11] MEDS ORDERED: PERCOCET 5MG/325MG TAB PO PRN (21:45)
[2019-02-11] MEDS ORDERED: KETOROLAC 30 MG/ML VIAL (J1885) IV SCH (22:00)
--- NOTE | 2019-02-11 22:19 | NUR ---
Operative Note Date of procedure: 02/11/19 Procedure: Primary low-transverse section Anesthesia: Spinal with Duramorph Preoperative diagnosis: 1. Di/Di twin gestation 2. Placenta previa (complete), bleeding, anemia 3. 32+5 weeks gestation Postoperative diagnosis: Same Indication: Di/Di twins. Complete placenta previa, anemia, steroid complete x 2. Primary surgeon: Arnulfo Howard D.O., FAdriel Song [employer]: Obie Madrigal CNM (essential role in surgical site exposure, and assistance with delivery of both twins) Estimated blood loss: 700 ml IV fluids administered: 1800 ml crystalloid Drains: Shah catheter. Urine output: 150 ml data: Twin A Apgars 8/9, BW: 1978g (4lbs 6oz). Female. Twin B Apgars 9/9, BW: 2222g (4lbs 14oz) Preoperative/prophylactic antibiotics: Ancef 2 g IV (given within 30 minutes prior to surgical start time). Intraoperative findings: Complete placenta previa. Cephalic , transverse presentation. Normal uterus and bilateral adnexa/ovaries. Specimen(s): Di/Di placenta/membranes. Procedure: The patient was counseled and consented on the risks, benefits, indications and alternatives of the procedure. Informed consent was obtained and placed in the c miller. She was taken to the operating room with an IV running. She was placed on the operating table. Spinal anesthesia was administered without any difficulty and found to be adequate. She was placed in the dorsal supine position with a leftward tilt. Sequential compression devices were placed on the lower extremities. A Shah catheter was placed under sterile conditions. She was sterilely prepped and draped. A surgical time out was performed per protocol. Spinal anesthesia was again found to be adequate. Using the 10 blade a Pfannenstiel incision was performed. The 10 blade was used to dissect down to the level of the rectus sheath fascia. The rectus sheath fas seth was incised at the midline, and the fascial incision was extended with Zee scissors. Eliseo clamps were used to grasp the superior and inferior aspect of the fascial incision and the rectus muscle bellies were dissected off sharply and bluntly. The midline was identified and the rectus muscle bellies were manually . The peritoneum was identified and clamped with hemostats and elevated. The peritoneum was then incised with Metzenbaum scissors. Entry into the intraperitoneal cavity was achieved. The peritoneal opening was extended with manual stretch . There was good visualization of both the bladder and the lower uterine segment. The Mobius retractor was placed. The vesicouterine peritoneum was dissected with Metzenbaum scissors and blunt dissection. A low transverse uterine incision was made with a new 10 blade. The hysterotomy was extended with manual stretch. The amniotic sac of twin A was protruding and then artificially ruptured. Clear amniotic fluid was noted. The baby's head delivered through the hysterotomy with ease. The remainder of the body delivered with ease. The cord was doubly clamped and cut and the newbor n baby was handed off to awaiting care. The amniotic sac of twin B was protruding and then artificially ruptured. Clear amniotic fluid was noted. The baby was delivered with routine breech maneuvers (Pinard, [place], MSV). The cord was doubly clamped and cut and the baby was handed off to awaiting care. The placenta was manually removed and noted to be fully intact. The uterus was kept in situ. The intrauterine cavity was cleared of all clot and debris with a laparotomy sponge. The hysterotomy was closed with 0 Vicryl in running, locked fashion. A second imbricating closure was performed over the initial layer closure using 0 Vicryl. The hysterotomy was noted to be hemostatic. The posterior cul-de-sac was irrigated and cleared of all clot and debris. The uterus was replaced back into the abdomen. The paracolic gutters were cleared of all clot and debris with damp laparotomy sponges. The hysterotomy is reinspected and noted to be hemostatic. Sponge, needle and instrument counts were correct. The peritoneum was closed with 3-0 Vicryl in running fashion. The rectus muscle bellies were reapproximated with 3-0 Vicryl with a series of interrupted sutures. The rectus muscle bellies were noted to be hemostatic. The fascia was closed with 0 Vicryl in running fashion. Sponge, needle and instrument counts were again correct. The subcutaneous layer was irrigated. Small subcutaneous bleeders were cauterized with Bovie. The subcutaneous layer was reapproximated with 3-0 Vicryl in running fashion. The skin was closed with 3-0 Monocryl in subcuticular fashion. A bandage was placed over the closed incision. The final sponge, instrument and needle count was correct. She tolerated the entire procedure very well. She was transferred to the PACU in good and stable condition. Dr. Arnulfo Howard D.O., F.A.C.O.G
[2019-02-12] VITALS (9 sets, daily range): BP systolic 91–115; BP diastolic 51–59
[2019-02-12] MEDS ORDERED: miSOPROStol 200 MCG TAB (S0191) PR ONE (02:15)
[2019-02-12] MEDS ORDERED: miSOPROStol 200 MCG TAB (S0191) As Ordered ONE (02:19)
[2019-02-12] MEDS: KETOROLAC 30 MG/ML VIAL (J1885) IV SCH ×3 (05:57→18:26)
[2019-02-12 06:57] LABS: HEMATOCRIT 37.7 % (36.0-47.0); HEMOGLOBIN 12.3 g/dl (12.0-15.5); MEAN CORPUSCULAR HGB CONC 32.6 g/dl (32.0-36.5); MEAN CORPUSCULAR VOLUME 88.9 fl (80.0-96.0); PLATELET COUNT, AUTOMATED 164 10^3/uL (150-450); RED BLOOD COUNT 4.24 10^6/uL (4.00-5.40); WHITE BLOOD COUNT 14.4 10^3/uL (4.0-10.0)
--- NOTE | 2019-02-12 07:32 | NUR ---
Progress Note S: Reports some incisional discomfort. Pain well controlled with Percocet and Toradol. Shah just removed. No complaints O: T98.5F, P87, R18, B/P97/51. A&Ox3. Breasts: soft non-tender. Abdomen: FF at U/2. Incision: Dressing in place, no drainage noted Perineum: Lochia rubra scant A: PO Day 1 P: OOB to shower today. Initiate .
[2019-02-12] MEDS: PRENATAL VITAMINS CHEWABLE TABLET PO SCH (09:16)
[2019-02-12] MEDS: DOCUSATE SODIUM 100 MG CAP PO SCH ×2 (09:17→20:33)
[2019-02-12] MEDS: PERCOCET 5MG/325MG TAB PO PRN ×3 (11:50→20:32)
[2019-02-13] MEDS: PERCOCET 5MG/325MG TAB PO PRN ×6 (00:50→21:58)
[2019-02-13 02:00] VITALS: BP_SYST 91; BP_SYST 97; BP_DIAS 46; BP_DIAS 53
[2019-02-13] MEDS: IBUPROFEN 800 MG TAB PO SCH ×3 (02:53→18:46)
[2019-02-13 05:56] VITALS: BP 96/53
[2019-02-13] MEDS ORDERED: COLA100C5 PO (06:36)
[2019-02-13] MEDS ORDERED: IBUP80TA PO (06:36)
[2019-02-13] MEDS ORDERED: PERCOCET PO (06:36)
--- NOTE | 2019-02-13 07:56 | NUR ---
Postoperative Day 2 Status post primary low transverse section, uncomplicated. See operative note. Subjective Pain is well controlled. Lochia is decreasing and minimal. Voiding spontaneously. Tolerating a regular diet. Ambulating without any assistance. Denies any subjective fever, chills, nausea, vomiting, headache, visual changes, shortness of breath, chest pain. Both babies are in the NICU and doing well Objective Vitals: Normotensive, normal heart rate, afebrile, adequate urine output. Heart: regular, rate, and rhythm. no murmurs/gallops/rubs Lungs: clear to auscultation bilaterally, no wheezes/crackles/rales/ronchi Abd: soft, nontender, nondistended, uterine fundus is 2cm below umbilicus and firm Incision: clean, dry, intact . Bandaged Ext: no significant edema, nontender, negative Mehrdad's bilaterally. Assessment/Plan: Postoperative day 2 status post primary low transverse section. Recovering well. Hemodynamically stable, afebrile, good pain control. -Routine care -Discharge to home tomorrow -Routine infectious, fever, pain, and bleeding precautions reviewed -Incision/wound care precautions reviewed. Gordo Manrique.O., F.A.C.O.G.
[2019-02-13] MEDS: PRENATAL VITAMINS CHEWABLE TABLET PO SCH (09:19)
[2019-02-13] MEDS: DOCUSATE SODIUM 100 MG CAP PO SCH ×2 (09:19→20:47)
[2019-02-13 10:00] VITALS: BP 113/70
[2019-02-13 18:13] VITALS: BP 113/53
[2019-02-13 22:36] VITALS: BP 120/57
[2019-02-14] MEDS: IBUPROFEN 800 MG TAB PO SCH ×2 (02:05→10:41)
[2019-02-14] MEDS: PERCOCET 5MG/325MG TAB PO PRN ×3 (02:05→10:41)
[2019-02-14 02:33] VITALS: BP 122/58
[2019-02-14 06:35] VITALS: BP 120/68
[2019-02-14] MEDS: DOCUSATE SODIUM 100 MG CAP PO SCH (08:46)
[2019-02-14] MEDS: PRENATAL VITAMINS CHEWABLE TABLET PO SCH (08:46)
[2019-02-14 10:00] VITALS: BP 116/61
--- NOTE | 2019-02-14 10:05 | DSES ---
DATE OF ADMISSION: 02/07/2019 DATE OF DISCHARGE: 02/14/2019 DISCHARGE DIAGNOSIS: Primary section postop day #3 stable condition. SURGEON: Dr. Arnulfo Howard. PROCESS DEVELOPMENT CHEMIST: Bonnie Madrigal, certified nurse study lead. HISTORY: Nestor is a 38-year-old 5, para 3-2-1-5 now, who underwent primary section on 02/11/2019 due to (Ezio) diamniotic/dichorionic twin gestation with complete previa for prior episodes of bleeding. She had positive Kleihauer-betke (KB). The surgery was uncomplicated. Estimated blood loss 700 mL. Twin A 1978 grams, 4 pounds 6 ounces, 8 and 9 female fetus. Twin B 2022 grams, 4 pounds 14 ounces, 9 and 9, female fetus. Her postoperative course has been uncomplicated. She has been out of bed with her neonates in the intensive care unit (NICU). She is pumping for . Her pain has been well controlled with oral Percocet and ibuprofen. She is voiding without difficulty and passing flatus. She denies bowel movement. OBJECTIVE: Temperature 98.8, pulse 83, respirations 16, blood pressure is 120/60. She is alert and oriented times three. Preoperative CBC: Hemoglobin 12.0, hematocrit 36.4, platelets 149. Postoperative CBC: Hemoglobin 12.3, hematocrit to 37.7, platelets 164. Breasts are actually full and tender today, engorgement noted. Abdomen: Fundus firm at one fingerbreadth below umbilicus. Incision Optifoam dressing dry and intact. No drainage noted. Perineum intact. Lochia rubra scant. PLAN: Discharge the patient home today. She is to followup at [facility], for a 2-week incision check and an 8-week visit. Prescriptions for pain medications have been E-prescribed by Dr. Arnulfo Howard, Percocet 05/325 as needed for pain and ibuprofen as needed for pain. I did review discharge instructions that include breast care, incision care, pelvic rest, kavon-care, activity and lifting restrictions, access to care and other danger signs which to report to her provider. The patient has had all their questions answered and agrees with the discharge plans. edited: 02/16/2019 0725 tkromana [place]
== END 2019-02-14 13:35 | disposition home or self-care (01) | DRG 788 ==
LOC: M LDO 22:27 → M LDI 02-07 09:20 → M OBS 02-11 23:25
PROVIDERS: ADMIT Obstetrics & Gynecology; ATTEND Advanced Practice Midwife
PROC: 30233N1 Transfusion of Nonautologous Red Blood Cells into Peripheral Vein, Percutaneous Approach (ICD-10-PCS; 2019-02-07)
PROC: 10D00Z1 Extraction of Products of Conception, Low, Open Approach (ICD-10-PCS; principal; 2019-02-11 16:00)
DX: O44.13 Complete placenta previa with hemorrhage, third trimester (principal); Z37.0 Single live birth; Z3A.32 32 weeks gestation of pregnancy; O30.043 Twin pregnancy, dichorionic/diamniotic, third trimester; Z37.2 Twins, both liveborn; O09.523 Supervision of elderly multigravida, third trimester; D64.9 Anemia, unspecified; O99.02 Anemia complicating childbirth